=== PATIENT | male | born 1990 | race Caucasian/White ===

== ENCOUNTER → 2023-10-05 | Outpatient (CLI) | payer OTHER ==
--- NOTE | 2023-10-05 15:54 | US ---
EXAMINATION TYPE: US scrotum with doppler. Grayscale and color Doppler Duplex imaging performed of catarino garcia scrotum. DATE OF EXAM: 10/05/2023 COMPARISON: NONE CLINICAL INDICATION: Male, 33 years old with history of I86.1 SCROTAL VARICES; RLQ pain EXAM MEASUREMENTS: TESTICLES: Right Testicle: 5.2x2.4x3.1 cm Left Testicle: 5.3x2.8x2.8 cm EPIDIDYMIS HEAD: Right Epididymis: 0.8 cm Left Epididymis: 1.1 cm Doppler performed to assess for testicular vascularity; good bilateral color flow and waveforms are s een. There is no evidence of testicular torsion. Presence of hydroceles: no Presence of varicoceles: left side IMPRESSION: 1. No evidence for intratesticular mass. 2. Appropriate arterial and venous spectral waveforms to the testes. 3. Left varicocele.
== END | disposition home or self-care (01) ==
LOC: RADUSWWP 14:05
PROVIDERS: ATTEND Family Medicine
DX: I86.1 Scrotal varices (principal); R10.31 Right lower quadrant pain
CPT/HCPCS: 76870; 93975